=== PATIENT | male | born 1950 | race Caucasian/White ===

== ENCOUNTER → 2023-09-11 07:09 | Outpatient (REF) | payer OTHER, SELFPAY | LOC: DHCBC/DCA 07:09 | PROVIDERS: ATTENDING PHYSICIAN Internal Medicine Cardiovascular Disease; FAMILY PHYSICIAN Physician Assistant Medical | DX: I10 Essential (primary) hypertension (principal); R06.09 Other forms of dyspnea; I25.119 Atherosclerotic heart disease of native coronary artery with unspecified angina pectoris | CPT/HCPCS: 78452; 93017; A9500; J2785 ==

== ENCOUNTER → 2023-12-18 06:36 | Day surgery (SDC) | payer OTHER, SELFPAY | LOC: GI 06:36 | PROVIDERS: ATTENDING PHYSICIAN Internal Medicine; FAMILY PHYSICIAN Physician Assistant Medical | DX: Z12.11 Encounter for screening for malignant neoplasm of colon (principal); D12.2 Benign neoplasm of ascending colon; D12.3 Benign neoplasm of transverse colon; K63.5 Polyp of colon; K51.40 Inflammatory polyps of colon without complications; K51.50 Left sided colitis without complications; K51.30 Ulcerative (chronic) rectosigmoiditis without complications; K57.30 Diverticulosis of large intestine without perforation or abscess without bleeding; K64.9 Unspecified hemorrhoids | CPT/HCPCS: 45385; 45380; 88305 ==

== ENCOUNTER → 2024-03-09 14:16 | Outpatient (REF) | payer OTHER, SELFPAY | LOC: HWRAD 14:16 | PROVIDERS: ATTENDING PHYSICIAN Physician Assistant Medical | DX: M25.511 Pain in right shoulder (principal) | CPT/HCPCS: 73030 ==

== ENCOUNTER → 2024-05-02 09:46 | Outpatient (REF) | payer OTHER, SELFPAY | LOC: MRI 3T 09:46 | PROVIDERS: ATTENDING PHYSICIAN Specialist; FAMILY PHYSICIAN Physician Assistant Medical | DX: M25.511 Pain in right shoulder (principal) | CPT/HCPCS: 73221 ==

== ENCOUNTER 2024-07-14 15:22 | Inpatient (IN) | payer OTHER, SELFPAY ==
[2024-07-14 08:21] VITALS: BP 115/86
--- NOTE | 2024-07-14 08:21 | ED.GENMED ---
ED Provider Triage
<Xochitl Borrero PA-C - Last Filed: 07/14/24 08:26>
-
Patient seen by provider in Triage?: Seen in Triage
Attestation: A medical screening examination has been initiated by a qualified medical provider. Based on the assessment performed at this time, it has been determined that an emergent medical condition may exist and the patient has been informed
that further medical evaluation and possible additional diagnostic testing may be needed.
HPI: 73yoM here with diarrhea and abdominal pain x 1.5 weeks. Hx of ulcerative colitis on Stelara. Seen by GI, Dr. Servin, this morning. Sent to ED for uncontrolled UC flare and concern for C.diff. 'Needs hospitalization for imaging, stools, and IV
steroids.'
GENERAL: Alert , in no apparent distress
EYE: No visual abnormalities.
NECK: Trachea midline
ENT: No visible abnormalities.
LUNGS: No acute respiratory distress
NEUROLOGICAL: Alert and oriented
SKIN: Skin intact. No visible changes.
MUSCULOSKELETAL: Moving extremities normally
PSYCH: Normal and appropriate interaction.
This is a medical evaluation conducted in person to initiate diagnostic evaluation and provide initial therapeutics. Please see further documentation by the treating clinician.
Abdominal labs, ESR/CRP, stool studies, and CT abdomen ordered.
History of Present Illness
<Xochitl Borrero PA-C - Last Filed: 07/14/24 08:26>
General
Chief Complaint: Abdominal Pain
Time Seen by Provider: 07/14/24 10:23
<Ayaz Chandler Jr., PA-C - Last Filed: 07/14/24 14:42>
General
Source: patient
Exam Limitations: none
Nursing documentation reviewed up to this point in time: agreed with
History of Present Illness
History of Present Illness:
73-year-old male with past medical history of ulcerative colitis sent in after discussion with his GI doctor with concerns of persisting severe diarrhea abdominal pain over the past week and a half. Patient is on Stelara has been taking this as
prescribed. He was seen in the office by Dr. Castellanos this morning which is the GI doctor. The they did reach out to the ER and had direct discussion with us about recommendations for treatment. There is concern for C. difficile and recommended
multiple forms of testing. Otherwise additional record request for CT scan and eventual IV steroids.
Past History
<Xochitl Borrero PA-C - Last Filed: 07/14/24 08:26>
Past History
ED Past Medical History: HTN and Other (Osteoarthritis)
ED Past Surgical History: Appendectomy, Orthopedic and Other (hernia)
Social History
Tobacco: Non-smoker
Alcohol: Occasional (Rare)
Personal:
Living: with family
Employment: Employed
Family History
Family History: Other (Noncontributory)
Review of Systems
<Ayaz Chandler Jr., PA-C - Last Filed: 07/14/24 14:42>
Review of Systems
Allergies reviewed?: Yes
All Other Systems: ROS reviewed and negative except as documented in HPI and ROS
Phy Exam
<Ayaz Chandler Jr., PA-C - Last Filed: 07/14/24 14:42>
Physical Exam
Physical Exam:
GENERAL: Alert , in no apparent distress
EYE: pupils equal and reactive
NECK: Supple, no significant adenopathy.
ENT: o/p clr, mmm.
CARDIAC: Regular rate and rhythm .
LUNGS: Clear breath sounds bilaterally, no acute respiratory distress, no wheezes/rales/rhonchi
ABDOMEN: Soft, without focal tenderness, no r/g, no cvat
NEUROLOGICAL: Alert and oriented, no focal neuro deficits
SKIN: Warm and dry, skin intact.
MUSCULOSKELETAL: No edema, well perfused.
PSYCH: Normal and appropriate interaction.
Course
<Xochitl Borrero PA-C - Last Filed: 07/14/24 08:26>
Orders/Labs/Results
Orders:
Orders
07/14/24 Breakfast
Clear Liquid
07/14/24 08:25
CT Abd/pel (oral only)-DH Only Urgent
Reason For Exam: Abd pain, diarrhea, hx of UC
Iohexol [Omnipaque] See Protocol PO NOW STA
07/14/24 08:31
CRP [C-Reactive Protein] Urgent
Complete Blood Count/With Diff Urgent
Comprehensive Metabolic Panel Urgent
ESR [Erythrocyte Sed Rate] Urgent
Ferritin Urgent
Iron Urgent
Lipase Urgent
07/14/24 11:34
HYDROmorphone [Dilaudid] 1 mg IV NOW STA
07/14/24 11:39
Ondansetron Injectable [Zofran] 4 mg .ROUTE .[facility]
07/14/24 11:52
Add On- LAB Routine
Tests Added?: ferritin, iron
07/14/24 12:28
Ondansetron Injectable [Zofran] 4 mg IV NOW STA
07/14/24 12:34
Calprotectin, Fecal [S] Urgent
Date Specimen was Collected: 07/14/24
Time Specimen was Collected: 12:19
CDIFF [C difficile Antigen & Toxins] Urgent
ISMAEL Source: Feces/Stool
Specimen Description:
Date Specimen was Collected: 07/14/24
Time Specimen was Collected: 12:19
Norovirus by PCR Urgent
ISMAEL Source: Feces/Stool
Specimen Description:
Date Specimen was Collected: 07/14/24
Time Specimen was Collected: 12:19
Stool Culture Urgent
ISMAEL Source: Feces/Stool
Specimen Description:
Date Specimen was Collected: 07/14/24
Time Specimen was Collected: 12:19
07/14/24 14:15
0.9% Sodium Chloride 1000 ml [Nss] 1,000 ml IV 100 mls/hr
07/14/24 15:00
MethylPREDNISolone PF [Solu-Medrol Pf] 20 mg IV Q8
07/15/24 06:00
Basic Metabolic Panel IN AM
Complete Blood Count/With Diff IN AM
Abnormal Lab Results
07/14/24
08:31
WBC 13.7 H 10^3/uL
(4.8-10.8)
RBC 4.13 L 10^6/uL
(4.70-6.10)
Hgb 12.9 L g/dL
(13.0-18.0)
Hct 37.3 L %
(39.0-52.0)
MCH 31.2 H pg
(27.0-31.0)
Plt Count 483 H 10^3/uL
(130-400)
Abs Immat Gran (auto) 0.1 H 10^3/uL
(0-0.05)
Absolute Neuts (auto) 8.8 H 10^3/uL
(1.4-6.5)
Absolute Monos (auto) 1.5 H 10^3/uL
(0.1-0.6)
Immature Gran % 0.8 H %
(0-0.5)
Monocytes % 11.3 H %
(1.7-9.3)
ESR 25 H mm/hour
(0-20)
Carbon Dioxide 21 L mmol/L
(22-30)
BUN 28 H mg/dl
(9-20)
Creatinine 2.0 H mg/dL
(0.7-1.3)
Glucose 130 H mg/dl
(70-99)
Calcium 10.3 H mg/dl
(8.4-10.2)
AST 15 L U/L
(17-59)
C-Reactive Protein 28.00 H mg/L
(0.0-10.00)
07/14/24 08:31
07/14/24 08:31
Vital Signs
Initial and Last Documented VS:
Initial Vital Signs
Temp Pulse Resp BP Pulse Ox
98.1 F 111 16 115/86 98
07/14/24 08:21 07/14/24 08:21 07/14/24 08:21 07/14/24 08:21 07/14/24 08:21
Last Documented Vital Signs
Temp Pulse Resp BP Pulse Ox
98.4 F 84 16 133/89 99
07/14/24 11:22 07/14/24 11:22 07/14/24 08:21 07/14/24 11:22 07/14/24 11:22
<Ayaz Chandler Jr., PAKushC - Last Filed: 07/14/24 14:42>
Orders/Labs/Results
Orders:
Orders
07/14/24 Breakfast
Clear Liquid
07/14/24 08:25
CT Abd/pel (oral only)-[facility] Only Urgent
Reason For Exam: Abd pain, diarrhea, hx of UC
Iohexol [Omnipaque] See Protocol PO NOW STA
07/14/24 08:31
CRP [C-Reactive Protein] Urgent
Complete Blood Count/With Diff Urgent
Comprehensive Metabolic Panel Urgent
ESR [Erythrocyte Sed Rate] Urgent
Ferritin Urgent
Iron Urgent
Lipase Urgent
07/14/24 11:34
HYDROmorphone [Dilaudid] 1 mg IV NOW STA
07/14/24 11:39
Ondansetron Injectable [Zofran] 4 mg .ROUTE .[facility]
07/14/24 11:52
Add On- LAB Routine
Tests Added?: ferritin, iron
07/14/24 12:28
Ondansetron Injectable [Zofran] 4 mg IV NOW STA
07/14/24 12:34
Calprotectin, Fecal [S] Urgent
Date Specimen was Collected: 07/14/24
Time Specimen was Collected: 12:19
CDIFF [C difficile Antigen & Toxins] Urgent
ISMAEL Source: Feces/Stool
Specimen Description:
Date Specimen was Collected: 07/14/24
Time Specimen was Collected: 12:19
Norovirus by PCR Urgent
ISMAEL Source: Feces/Stool
Specimen Description:
Date Specimen was Collected: 07/14/24
Time Specimen was Collected: 12:19
Stool Culture Urgent
ISMAEL Source: Feces/Stool
Specimen Description:
Date Specimen was Collected: 07/14/24
Time Specimen was Collected: 12:19
07/14/24 14:15
0.9% Sodium Chloride 1000 ml [Nss] 1,000 ml IV 100 mls/hr
07/14/24 15:00
MethylPREDNISolone PF [Solu-Medrol Pf] 20 mg IV Q8
07/15/24 06:00
Basic Metabolic Panel IN AM
Complete Blood Count/With Diff IN AM
Abnormal Lab Results
07/14/24
08:31
WBC 13.7 H 10^3/uL
(4.8-10.8)
RBC 4.13 L 10^6/uL
(4.70-6.10)
Hgb 12.9 L g/dL
(13.0-18.0)
Hct 37.3 L %
(39.0-52.0)
MCH 31.2 H pg
(27.0-31.0)
Plt Count 483 H 10^3/uL
(130-400)
Abs Immat Gran (auto) 0.1 H 10^3/uL
(0-0.05)
Absolute Neuts (auto) 8.8 H 10^3/uL
(1.4-6.5)
Absolute Monos (auto) 1.5 H 10^3/uL
(0.1-0.6)
Immature Gran % 0.8 H %
(0-0.5)
Monocytes % 11.3 H %
(1.7-9.3)
ESR 25 H mm/hour
(0-20)
Carbon Dioxide 21 L mmol/L
(22-30)
BUN 28 H mg/dl
(9-20)
Creatinine 2.0 H mg/dL
(0.7-1.3)
Glucose 130 H mg/dl
(70-99)
Calcium 10.3 H mg/dl
(8.4-10.2)
AST 15 L U/L
(17-59)
C-Reactive Protein 28.00 H mg/L
(0.0-10.00)
07/14/24 08:31
07/14/24 08:31
Vital Signs
Initial and Last Documented VS:
Initial Vital Signs
Temp Pulse Resp BP Pulse Ox
98.1 F 111 16 115/86 98
07/14/24 08:21 07/14/24 08:21 07/14/24 08:21 07/14/24 08:21 07/14/24 08:21
Last Documented Vital Signs
Temp Pulse Resp BP Pulse Ox
98.4 F 84 16 133/89 99
07/14/24 11:22 07/14/24 11:22 07/14/24 08:21 07/14/24 11:22 07/14/24 11:22
<Ayaz Chandler Jr., PA-C - Last Filed: 07/14/24 14:42>
MDM/Problems Addressed
MDM/Problems Addressed:
73-year-old male past medical history of ulcerative colitis presenting with severe diarrhea and abdominal pain over the past week and a half. Sent in for further assessment by his gastroenterology group. Plan for testing CT scan and IV steroids.
CT without acute abnormalities other than colitis but no signs of complication. Patient was given fluids IV pain medication. C. difficile negative.
<Ayaz Chandler Jr., PA-C - Last Filed: 07/14/24 14:42>
*Critical Care Note
Total Time (30-74mins, 75-104mins- exclusive of procedures): Not Applicable
ED Attending Note
<Xochitl Borrero PA-C - Last Filed: 07/14/24 08:26>
-
Portions of this chart may have been created with voice recognition software.� Occasional wrong word or��sound alike� substitutions may have occurred due to the inherent limitations of voice recognition software.
Discharge Plan
Departure
Patient Disposition: Admit
Date of Disposition: 07/14/24
Time of Disposition: 14:41
Admit to: Med/Surg
Admit to doctor: Gianni
Presentation/result/management discussed w/ accepting MD/DO: Hospitalist
Patient with high blood pressure during this ER visit?: No
Condition: Good
Covid-19: Not Applicable
Discharge Problem:
Ulcerative colitis, acute
Prescriptions:
No Action
amlodipine 5 MG tablet
5 mg PO DAILY
omeprazole 20 MG capsule,delayed release(DR/EC)
1 cap PO DAILY
tamsulosin [Flomax] 0.4 MG capsule
1 tab PO DAILY AT 0700
ascorbic acid (vitamin C) [Vitamin C] 100 MG tablet
1 tab PO DAILY
docusate sodium [Stool Softener] 100 MG capsule
100 mg PO DAILYPRN PRN (Reason: constipation)
losartan-hydrochlorothiazide [Hyzaar] 1 EACH tablet
1 tab PO DAILY
ferrous sulfate [High Potency Iron] 27 MG tablet
27 mg PO Q3D
cholecalciferol (vitamin D3) 2,000 UNITS tablet
2,000 units PO DAILY
Vitamin D3/Vitamin K2 (Mk4)
Referrals:
Pratima Martinez PA-C [Family Provider] -
Interventions
Interventions:
*Risk Screen - Suicide Last Done: 07/14/24 08:21
*General Assessment Last Done: 07/14/24 08:21
*Neglect/Abuse Screening Last Done: 07/14/24 08:24
*ED COVID-19 Vaccine History Last Done: 07/14/24 11:19
EM-Qttupq-Yvrlwrlpcd Assessment Last Done: 07/14/24 11:21
Discharge Date and Time
Print Language: [place]OREAN
[2024-07-14] MEDS: OMNIPAQUE 50 ML PO (08:43)
[2024-07-14 08:47] LABS: % Basophils 0.6 % (0-2); % Eosinophils 1.7 % (0-6); % Immature Granulocytes 0.8 % (0-0.5); % Lymphocytes 21.7 % (20.5-51.1); % Monocytes 11.3 % (1.7-9.3); % Neutrophils 63.9 % (42.2-75.2); Absolute Basophils 0.1 10^3/uL (0-0.2); Absolute Eosinophils 0.2 10^3/uL (0-0.7); Absolute Immature Granulocytes 0.1 10^3/uL (0-0.05); Absolute Monocytes 1.5 10^3/uL (0.1-0.6); Absolute Neutrophils 8.8 10^3/uL (1.4-6.5); Hematocrit 37.3 % (39.0-52.0); Hemoglobin 12.9 g/dL (13.0-18.0); Mean Corp Hgb Conc. 34.6 g/dL (33.0-37.0); Mean Corpuscular Hgb 31.2 pg (27.0-31.0); Mean Corpuscular Volume 90.3 fL (80.0-94.0); Mean Platelet Volume 9.1 fL (7.4-10.4); Nucleated Red Blood Cells % 0 % (-); Platelet Count 483 10^3/uL (130-400); Red Blood Cell Count 4.13 10^6/uL (4.70-6.10); Red Cell Dist. Width 12.3 % (11.5-14.5); White Blood Cell Count 13.7 10^3/uL (4.8-10.8)
[2024-07-14 09:00] LABS: ALT (SGPT) 13 U/L (0-50); AST (SGOT) 15 U/L (17-59); Albumin 3.9 g/dl (3.5-5.0); Alkaline Phosphatase 88 U/L (38-126); Blood Urea Nitrogen 28 mg/dl (9-20); Calcium 10.3 mg/dl (8.4-10.2); Carbon Dioxide 21 mmol/L (22-30); Chloride 105 mmol/L (98-107); Glucose 130 mg/dl (70-99); Lipase 56 U/L (23-300); Potassium 3.8 mmol/L (3.5-5.1); Sodium 141 mmol/L (135-145); Total Bilirubin 0.5 mg/dl (0.2-1.3); Total Protein 6.4 g/dl (6.3-8.2); eGFR 34.59
[2024-07-14 09:04] LABS: Erythrocyte Sed Rate 25 mm/hour (0-20)
[2024-07-14 11:19] VITALS: BMI 27.9
[2024-07-14 11:22] VITALS: BP 133/89
[2024-07-14] MEDS: DILAUDID 1 MG IV ×3 (12:27→23:04)
[2024-07-14] MEDS: ZOFRAN 4 MG IV (12:28)
[2024-07-14 12:51] LABS: Iron 52 ug/dl (49-181)
--- NOTE | 2024-07-14 13:59 | CON.GI ---
Consultation
-
Date/Time Consultation Performed: 07/14/24
Performing Provider: Moisés Collins MD
Reason for Consultation: colitis
Medical History
Chief Complaint / HPI
Chief Complaint: diarrhea
History of Present Illness:
The patient is a 73-year-old male with past medical history as noted who presents with increasing colitis symptoms. He has a history of ulcerative colitis, proctosigmoid, initially on Entyvio, switched for activity to Stelara over the summer,
recently increased in May to every 4 weeks due to lack of response. He admits to multiple bowel movements with tenesmus, sometimes 20-30, with blood and mucus. Stool studies in May were negative including ova and parasites, culture,
Giardia and C. difficile. Sed rate was normal as well as CRP, though fecal calprotectin was elevated mildly at 570. He denies any rashes, joint swelling. He has [place] at home and denies any other travel or sick contacts. He had been
doing relatively well symptom [place] until his shoulder surgery , Though C. difficile has been repeatedly negative.
Past Medical History
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
hypertension)
Past Surgical History: Other (Recent shoulder surgery, hernia repair, right hip, appendectomy, right thumb)
Social History
Tobacco: Former Smoker
Alcohol: None
Family History
Family History: Reviewed & Not Pertinent
Allergies / Home Medications
Allergy/AdvReac Type Severity Reaction Status Date / Time
Penicillins Allergy Unknown Unknown Verified 07/14/24 08:21
�Medication �Instructions �Recorded
amlodipine 5 mg tablet 5 mg PO DAILY 11/20/15
omeprazole 20 mg capsule,delayed 1 cap PO DAILY 08/09/20
release
Vitamin D3/Vitamin K2 (Mk4) 02/28/21
ascorbic acid (vitamin C) 100 mg 1 tab PO DAILY 02/28/21
tablet (Vitamin C)
cholecalciferol (vitamin D3) 50 2,000 units PO DAILY 02/28/21
mcg (2,000 unit) tablet
docusate sodium 100 mg capsule 100 mg PO DAILYPRN PRN constipation 02/28/21
(Stool Softener)
ferrous sulfate 27 mg iron tablet 27 mg PO Q3D 02/28/21
(High Potency Iron)
losartan 100 1 tab PO DAILY 02/28/21
mg-hydrochlorothiazide 12.5 mg
tablet (Hyzaar)
tamsulosin 0.4 mg capsule (Flomax) 1 tab PO DAILY AT 0700 02/28/21
Review of Systems
-
All other systems: A 12 pt ROS was Negative except as stated above in HPI
Vital Signs
Temp Pulse Resp BP Pulse Ox
98.4 F 84 16 133/89 99
07/14/24 11:22 07/14/24 11:22 07/14/24 08:21 07/14/24 11:22 07/14/24 11:22
Physical Exam
Exam
General: NAD
HEENT: MMM, anicteric, no lymphadenopathy
Heart: Regular, no murmurs
Lungs: CTA bilaterally
Abdomen: normal bowel sounds, soft, mild diffuse tenderness, no rebound or guarding, no masses, bruits or ascites
Extremeties: no edema
Skin: no rashes
Results
WBC 13.7 10^3/uL (4.8-10.8) H 07/14/24 08:31
Hgb 12.9 g/dL (13.0-18.0) L 07/14/24 08:31
Hct 37.3 % (39.0-52.0) L 07/14/24 08:31
MCV 90.3 fL (80.0-94.0) 07/14/24 08:31
Plt Count 483 10^3/uL (130-400) H 07/14/24 08:31
Absolute Neuts (auto) 8.8 10^3/uL (1.4-6.5) H 07/14/24 08:31
Sodium 141 mmol/L (135-145) 07/14/24 08:31
Potassium 3.8 mmol/L (3.5-5.1) 07/14/24 08:
Chloride 105 mmol/L (98-107) 07/14/24 08:31
Carbon Dioxide 21 mmol/L (22-30) L 07/14/24 08:
BUN 28 mg/dl (9-20) H 07/14/24 08:
Creatinine 2.0 mg/dL (0.7-1.3) H 07/14/24 08:
Calcium 10.3 mg/dl (8.4-10.2) H 07/14/24 08:
Total Bilirubin 0.5 mg/dl (0.2-1.3) 07/14/24 08:
AST 15 U/L (17-59) L 07/14/24 08:31
ALT 13 U/L (0-50) 07/14/24 08:31
Alkaline Phosphatase 88 U/L (38-126) 07/14/24 08:31
Lipase 56 U/L (23-300) 07/14/24 08:31
Diagnostic Image Results:
CT:
IMPRESSION: CT findings compatible with diffuse colitis. This is most likely exacerbation of ulcerative colitis, given the clinical history.
There is no significant dilation of the colon.
There is no evidence for bowel obstruction and no evidence of free intraperitoneal air.
Status post cholecystectomy with no evidence for biliary ductal dilation.
Bony degenerative changes as described.
Prior GI Procedures:
EGD:
Colonoscopy:
December 2023, showed San 2 from rectum to sigmoid, biopsy showed moderate to severe active and chronic inflammation without dysplasia, 2 small adenomas.
Assessment / Plan
-
1. Colitis: With history of proctosigmoiditis, failed Entyvio and every 8weeks Stelara, currently on every 4 weeks, now with worsening symptoms, with negative stool studies in May, also with repeat negative C. difficile now, likely related to
worsening ulcerative colitis. At this point with negative C. difficile and previously negative stool studies will start IV steroids, will await final stool studies. Will continue supportive care including IV fluids. Pending clinical course
possible flexible sigmoidoscopy to rule out CMV which seems less likely. If all the above is negative and not responding then may need to consider infliximab as an inpatient.
-
-
Thank you for consultation and allowing me to participate in the patient's care. Please call the electroneurodiagnostic technician GI physician during the after hours with any questions or concerns.
--- NOTE | 2024-07-14 14:44 | HPS.HSE ---
Addendum entered and electronically signed by Mikael Herbert MD 07/14/24 16:06:
I personally performed a history and physical exam of the patient and discussed management with the resident. I reviewed the resident's note and agree with the documented findings and plan of care HPI/CC except for changes in my documentation
73-year-old male presented with diarrhea and abdominal discomfort. He has a history of ulcerative colitis was on Entyvio then switched to Stelara now. He has been having several bile movements and also pain. He also noted some blood and mucus.
CT of the abdomen pelvis-07/14/2024-diffuse colitis. No dilatation of the colon. No evidence of bile obstruction or free intraperitoneal air. Status post cholecystectomy
CVS: S1-S2 normal
Chest: CTA B/L
Abdomen: Soft,abd discomfort with palpation,Bowel sounds present
Extremities: No edema
# Ulcerative colitis flare
Follows with Dr. Servin now
Was on Entyvio as outpatient now switched to Stelara and the dose was recently increased
Colonoscopy within the past year was unremarkable per patient. I do not have details.
CRP 28
Pain control
Check stool cultures
Admitted start IV steroids, IV fluids
Stool culture was negative in May
GI planning to start infliximab as outpatient
Stool calprotectin pending
GI consultation
# Acute kidney injury-likely secondary to prerenal losses from diarrhea. Follow with IV fluids. Check urinalysis and urine sodium. Hold losartan hydrochlorothiazide. Check Bladder scan
# History of small bowel obstruction 2018
# COPD-continue Trelegy Ellipta
# History of lung nodules
# Mild thrombocytosis-follow
# Hypertension-Hold losartan/hydrochlorothiazide
# Prostate disease-continue Flomax.
# Diverticulosis/hemorrhoids
# Ex-smoker
# DVT prophylaxis-Lovenox and SCDs
# CODE STATUS-Full CODE
D/W GI
D/W at bed side
Part of this note was created using voice recognition system. Occasional wrong word or��sound alike� substitutions may have inadvertently occurred due to the inherent limitations of voice recognition software. If noted kindly bring it to my
attention for correction.
Original Note:
Family Physician
-
Family Physician: Pratima Martinez PA-C
Chief Complaint
-
Diarrhea severe diarrhea
History of Present Illness
Patient is a 73-year-old male with past medical history of BPH,COPD as a previous smoker, hypertension, osteoarthritis, stage IV kidney disease, iron deficiency anemia, and ulcerative colitis presenting to [facility] after 1-1/2 weeks of
severe diarrhea. He states some days he was in the bathroom 50 times. He states that he has bloody bowel movements, with alternating sharp and cramping abdominal pain diffusely. He has recently lost 20 pounds in the last 6 months secondary to
restrictive eating because he is trying not to use the restroom. Stool studies in May were negative including ova and parasites, culture, Giardia and C. difficile. His dose of Stelara was recently increased in May. He was seen by GI in
the ED who started IV fluids and steroids.
Today he reports no headaches, chest pain, shortness of breath or numbness and tingling in the extremities. He does report nausea, vomiting this a.m. and abdominal discomfort.
Medical History
Past Medical History
Past Medical History: Reports COPD, HTN, Renal Failure and Other (Ulcerative colitis)
Additional Past Medical History:
BPH
Past Surgical History: Reports Appendectomy, Orthopedic and Other (Hernia)
Social History
Tobacco: Former Smoker
Alcohol: None
Drug: None
Personal:
Living: With Family
Employment: Employed
Family History
Family History: CAD
Allergies / Home Medications
Allergies reflects when Allergies were last updated in [employer].
Home Medications with original date entered in [facility]
Allergy/Medication List:
Allergies
Allergy/AdvReac Type Severity Reaction Status Date / Time
Penicillins Allergy Unknown Unknown Verified 12/03/24 08:21
Home Medications
amlodipine 5 mg tablet 5 mg PO DAILY 11/20/15
omeprazole 20 mg capsule,delayed release 1 cap PO DAILY 08/09/20
Vitamin D3/Vitamin K2 (Mk4) 02/28/21
ascorbic acid (vitamin C) 100 mg tablet (Vitamin C) 1 tab PO DAILY 02/28/21
cholecalciferol (vitamin D3) 50 mcg (2,000 unit) tablet 2,000 units PO DAILY 02/28/21
docusate sodium 100 mg capsule (Stool Softener) 100 mg PO DAILYPRN PRN constipation 02/28/21
ferrous sulfate 27 mg iron tablet (High Potency Iron) 27 mg PO Q3D 02/28/21
losartan 100 mg-hydrochlorothiazide 12.5 mg tablet (Hyzaar) 1 tab PO DAILY 02/28/21
tamsulosin 0.4 mg capsule (Flomax) 1 tab PO DAILY AT 0700 02/28/21
Review of Systems
-
History Source: Patient
A 12 point ROS was completed and negative except as noted: Yes
Constitutional: Reports Weight Loss
EENT: Reports No Symptoms
Respiratory: Reports No Symptoms
Cardiac: Reports No Symptoms
Abdomen/GI: Reports Abdominal Pain, Nausea, Vomiting, Diarrhea and Bloody Stools
: Reports No Symptoms
Musculoskeletal: Reports No Symptoms
Neurological: Reports No Symptoms
Psych: Reports No Symptoms
Physical Exam
Vital Signs
Vital Signs
Temp Pulse Resp BP Pulse Ox
98.4 F 84 16 133/89 99
07/14/24 11:22 07/14/24 11:22 07/14/24 08:21 07/14/24 11:22 07/14/24 11:22
Physical Exam
General: Well Developed, Well Nourished, No Apparent Distress, Conversant and Poor Appetite
HEENT: NormoCephalic and Anicteric
Respiratory: Clear
Cardiac: S1/S2 and Regular Rhythm
GI: Soft, Non Distended, Normal Bowel Sounds and Tender
Musculoskeletal: No Clubbing, No Cyanosis and No Edema
Skin: Warm and Dry
Neuro: AO x 3
Psych: Calm
Laboratory Results
-
07/14/24 08:31
07/14/24 08:
Laboratory Results
Total Bilirubin 0.5 mg/dl (0.2-1.3) 07/14/24 08:
AST 15 U/L (17-59) L 07/14/24:
ALT 13 U/L (0-50) 07/14/24:
Alkaline Phosphatase 88 U/L (38-126) 07/14/24:
Lipase 56 U/L (23-300) 07/14/24 08:
Data Reviewed
-
CT Scan: Report Reviewed by me
Lab Data: Labs Reviewed by me and Discussed with Physician
Old Records: Reviewed
Impression/Plan
-
IMPRESSION: 73-year-old male with past medical history of ulcerative colitis presenting with severe diarrhea over the last week and a half.
PLAN:
#Colitis with history of proctosigmoiditis
Currently managed on Stelara every 4 weeks
Pending stool studies
Continue IVF, IV steroids and pain management
Consider infliximab as inpatient if no response per GI recommendations
GI following, input appreciated
#COPD
Continue fluticasone
#Hypertension
Continue losartan
#GERD
Continue omeprazole
DVT: Pneumatic compression sleeves
Diet: Clear liquids
Full code
[2024-07-14] MEDS: SOLU-MEDROL PF 20 MG IV ×2 (16:22→23:01)
[2024-07-14] MEDS: NSS 1000 IV (16:22)
[2024-07-14 16:25] VITALS: BP 120/81
--- NOTE | 2024-07-14 19:55 | PTCARENOTE ---
Pt received from ED to rm [id number]. pt oriented to room and call baptiste.
[2024-07-14 20:01] VITALS: BP 145/81
[2024-07-14] MEDS: FLOMAX 0.4 MG PO (20:07)
[2024-07-14] MEDS: SYMBICORT 80/4.5 MCG INHALER 2 PUFF INH (20:08)
[2024-07-14 23:23] LABS: Urine Albumin Trace (Neg - Trace); Urine Bilirubin Negative (Negative); Urine Character Clear (Clear); Urine Color Yellow; Urine Glucose Negative (Negative); Urine Ketone Negative (Negative); Urine Leukocyte Trace (Negative); Urine Nitrite Negative (Negative); Urine Occult Blood Trace (Negative); Urine Specific Gravity 1.025 (<1.030); Urine Urobilinogen Negative (Neg - 1+)
[2024-07-14 23:44] VITALS: BP 131/76
[2024-07-14 23:48] LABS: Urine Calcium Oxalate Crystals Seen; Urine Mucus Moderate
[2024-07-14 23:49] LABS: Urine Bacteria Moderate (Negative)
[2024-07-14 23:51] LABS: Urine Sodium 75 mmol/L (30-90)
[2024-07-15] MEDS: NSS 1000 IV ×3 (00:30→20:57)
[2024-07-15 06:51] VITALS: BMI 27.0
[2024-07-15 07:00] VITALS: BP 129/75
--- NOTE | 2024-07-15 07:46 | W.PN.HOSP.TC ---
Addendum entered and electronically signed by Mikael Herbert MD 07/15/24 17:55:
I saw and evaluated the patient. I reviewed the resident�s note and agree with findings and plan as documented in the resident�s note.
Patient feels that his diarrhea has gotten Much better no blood in the stools
Abdomen less tender today
Continue IV steroids and IV fluids
Original Note:
Today's Communication/Plan
-
Continue IV fluids and steroids. Progress diet. Continue to monitor for frequency and blood in stool.
Assessment / Plan
Assessment / Plan
Patient is a 73-year-old male with past medical history of BPH,COPD as a previous smoker, hypertension, osteoarthritis, stage IV kidney disease, iron deficiency anemia, and ulcerative colitis presenting to [facility] after 1-1/2 weeks of
severe diarrhea.
#Colitis with history of proctosigmoiditis
Currently managed on Stelara every 4 weeks
Pending stool studies. C. difficile and norovirus negative, Shigella Campylobacter and Salmonella pending
Continue IVF, IV steroids and pain management
Consider infliximab as inpatient if no response per GI recommendations
Diet progressed to full liquid today
GI following, input appreciated
#COPD
Continue fluticasone
#Hypertension
Hold losartan
#GERD
Continue omeprazole
DVT: Pneumatic compression sleeves
Diet: Full liquid
Full code
Anticipated Discharge: 24 - 48 hours
Subjective/Interval History
-
Date of Service: July 15, 2024
Patient is a 73-year-old male with past medical history of BPH,COPD as a previous smoker, hypertension, osteoarthritis, stage IV kidney disease, iron deficiency anemia, and ulcerative colitis presenting to [facility] after 1-1/2 weeks of
severe diarrhea. Patient reports that diarrhea has slowed overnight, no longer bloody. He has had no repeat episodes of nausea or vomiting. He still has mild tenderness in the abdomen.
Objective Data
-
Labs:
Laboratory Results
07/15/24
06:00
WBC Pending
Hgb Pending
Hct Pending
Plt Count Pending
Sodium Pending
Potassium Pending
Chloride Pending
Carbon Dioxide Pending
BUN Pending
Creatinine Pending
Glucose Pending
Calcium Pending
Vital Signs:
Vital Signs
Temp Pulse Resp BP Pulse Ox
97.9 F 72 18 131/76 95
07/14/24 23:44 07/14/24 23:44 07/14/24 23:44 07/14/24 23:44 07/14/24 23:44
I&O
07/14/24 07/15/24 07/16/24
06:59 06:59 06:59
Intake Total 1200 / 1200
Balance 1200 / 1200
Review of Systems
-
History Source: Patient
Constitutional: Reports No Symptoms
EENT: Reports No Symptoms Reported
Respiratory: Reports No Symptoms
Cardiac: Reports No Symptoms
Abdomen/GI: Reports Abdominal Pain and Diarrhea
Genitourinary: Reports No Symptoms
Skin: Reports No Symptoms
Physical Exam
-
General: Well Developed, Well Nourished, No Apparent Distress, Comfortable and Conversant
HEENT: Normocephalic and Atraumatic
Respiratory: Clear to Auscultation
Cardiac: Regular Rhythm and S1/S2
GI: Soft, Nontender and Nondistended
Musculoskeletal: No Clubbing, No Cyanosis and No Edema
Skin: Warm and Dry
Neuro: AO x 3
Psych: Calm
Data Reviewed
-
CT Scan: Report Reviewed by me
Labs: Labs Reviewed by me and Discussed with Physician
Old Records: Reviewed
[2024-07-15] MEDS: SOLU-MEDROL PF 20 MG IV ×3 (08:00→23:17)
[2024-07-15] MEDS: PROTONIX 40 MG PO (08:00)
[2024-07-15 08:22] LABS: % Basophils 0.2 % (0-2); % Immature Granulocytes 0.9 % (0-0.5); % Lymphocytes 20.5 % (20.5-51.1); % Monocytes 6.3 % (1.7-9.3); % Neutrophils 72.1 % (42.2-75.2); Absolute Immature Granulocytes 0.1 10^3/uL (0-0.05); Absolute Lymphocytes 2.4 10^3/uL (1.2-3.4); Absolute Monocytes 0.8 10^3/uL (0.1-0.6); Absolute Neutrophils 8.5 10^3/uL (1.4-6.5); Hematocrit 36.5 % (39.0-52.0); Hemoglobin 11.7 g/dL (13.0-18.0); Mean Corp Hgb Conc. 32.1 g/dL (33.0-37.0); Mean Corpuscular Hgb 30.5 pg (27.0-31.0); Mean Corpuscular Volume 95.1 fL (80.0-94.0); Nucleated Red Blood Cells % 0 % (-); Platelet Count 426 10^3/uL (130-400); Red Blood Cell Count 3.84 10^6/uL (4.70-6.10); Red Cell Dist. Width 12.1 % (11.5-14.5); White Blood Cell Count 11.8 10^3/uL (4.8-10.8)
[2024-07-15] MEDS: SPIRIVA RESPIMAT 2.5 MCG 2 PUFF INH (08:40)
[2024-07-15] MEDS: SYMBICORT 80/4.5 MCG INHALER 2 PUFF INH ×2 (08:40→20:10)
[2024-07-15 08:45] LABS: Blood Urea Nitrogen 26 mg/dl (9-20); Calcium 9.7 mg/dl (8.4-10.2); Carbon Dioxide 22 mmol/L (22-30); Chloride 105 mmol/L (98-107); Estimated Creatinine Clearance 39 ml/min; Glucose 129 mg/dl (70-99); Potassium 4.9 mmol/L (3.5-5.1); Sodium 140 mmol/L (135-145); eGFR 42.04
--- NOTE | 2024-07-15 08:46 | W.PN.GI.CBS2 ---
Today's Communication / Plan
-
Please see assessment and plan for details.
Assessment / Plan
-
1. Colitis: With history of proctosigmoiditis, failed Entyvio and every 8weeks Stelara, currently on every 4 weeks, now with worsening symptoms, with negative stool studies in May, also with repeat negative C. difficile now, likely related to
worsening ulcerative colitis. At this point with negative C. difficile and previously negative stool studies will start IV steroids, will await final stool studies. Will continue supportive care including IV fluids. Will advance to full liquids
for today continue to trend labs and IV steroids. Pending clinical course possible flexible sigmoidoscopy to rule out CMV which seems less likely. If all the above is negative and not responding then may need to consider infliximab as an inpatient.
Subjective
Subjective
Date of Service: July 15, 2024
Patient feeling okay, still with diarrhea overnight, though no blood. Some tenderness though not worse, no fevers or chills. Stool studies negative so far.
Objective
Data Reviewed
Laboratory Data:
Laboratory Results
07/15/24 07:50
07/15/24 07:50
Laboratory Results
Total Bilirubin 0.5 mg/dl (0.2-1.3) 07/14/24 08:31
AST 15 U/L (17-59) L 07/14/24 08:31
ALT 13 U/L (0-50) 07/14/24 08:31
Alkaline Phosphatase 88 U/L (38-126) 07/14/24 08:31
Lipase 56 U/L (23-300) 07/14/24 08:31
Vital Signs and I&O:
Vital Signs
Temp Pulse Resp BP Pulse Ox
97.9 F 73 17 131/76 95
07/14/24 23:44 07/15/24 08:41 07/15/24 08:41 07/14/24 23:44 07/15/24 08:41
I&O
07/14/24 07/15/24 07/16/24
06:59 06:59 06:59
Intake Total 1200 / 1200
Balance 1200 / 1200
Physical Exam
Physical Exam
General: NAD
Abdomen: normal bowel sounds, soft, mild diffuse tenderness, no masses or bruits, no ascites
[2024-07-15 15:00] VITALS: BP 139/74
--- NOTE | 2024-07-15 15:33 | CM ---
sales advisory manager reviewed patient's chart and met with patient and patient lives with spouse and daughter in a 1 story home, patient is independent with adl's and ambulation, no dme, patient drives.
PCP: Pratima Martinez
Pharmacy: [facility]
Plan Home no needs when stable.
[2024-07-15] MEDS: FLOMAX 0.4 MG PO (20:58)
[2024-07-15] MEDS: DILAUDID 1 MG IV (21:36)
[2024-07-15 23:40] VITALS: BP 119/72
[2024-07-16] MEDS: NSS 1000 IV (07:06)
--- NOTE | 2024-07-16 07:24 | W.PN.GI.CBS2 ---
Today's Communication / Plan
-
Please see assessment and plan for details.
Assessment / Plan
-
1. Colitis: With history of proctosigmoiditis, failed Entyvio and every 8weeks Stelara, currently on every 4 weeks, now with worsening symptoms, with negative stool studies in May, also with repeat negative C. difficile now, likely related to
worsening ulcerative colitis. He is currently improving on day 2 of IV Solu-Medrol. Will continue supportive care, trend labs and will advance to low residue diet. If continues to improve possible DC in the next 24 to 48 hours.
Subjective
Subjective
Date of Service: July 16, 2024
Patient feeling better overall, less frequent stools, starting to form some, no blood. Tenderness is improving, tolerated liquids without difficulty.
Objective
Data Reviewed
Laboratory Data:
Laboratory Results
Total Bilirubin 0.5 mg/dl (0.2-1.3) 07/14/24 08:31
AST 15 U/L (17-59) L 07/14/24 08:31
ALT 13 U/L (0-50) 07/14/24 08:31
Alkaline Phosphatase 88 U/L (38-126) 07/14/24 08:31
Lipase 56 U/L (23-300) 07/14/24 08:31
Vital Signs and I&O:
Vital Signs
Temp Pulse Resp BP Pulse Ox
97.6 F 74 12 119/72 96
07/15/24 23:40 07/15/24 23:40 07/15/24 23:40 07/15/24 23:40 07/15/24 23:40
I&O
07/15/24 07/16/24 07/17/24
06:59 06:59 06:59
Intake Total 1200 / 1200 480 / 480
Balance 1200 / 1200 480 / 480
Physical Exam
Physical Exam
General: NAD
Abdomen: normal bowel sounds, soft, mild diffuse tenderness though improved, no masses or bruits, no ascites
[2024-07-16] MEDS: SYMBICORT 80/4.5 MCG INHALER 2 PUFF INH ×2 (07:42→20:26)
[2024-07-16] MEDS: SPIRIVA RESPIMAT 2.5 MCG 2 PUFF INH (07:43)
--- NOTE | 2024-07-16 07:45 | W.PN.HOSP.TC ---
Addendum entered and electronically signed by Mikael Herbert MD 07/16/24 16:22:
I saw and evaluated the patient. I reviewed the resident�s note and agree with findings and plan as documented in the resident�s note.
Patient's pain is improving. No bloody diarrhea. Bowel movements are slowing down.
Continue steroids
Diet being advanced
Original Note:
Today's Communication/Plan
-
See how patient tolerates low residue diet
Assessment / Plan
Assessment / Plan
Patient is a 73-year-old male with past medical history of BPH,COPD as a previous smoker, hypertension, osteoarthritis, stage IV kidney disease, iron deficiency anemia, and ulcerative colitis presenting to [facility] after 1-1/2 weeks of
severe diarrhea.
#Colitis with history of proctosigmoiditis
Currently managed on Stelara every 4 weeks
Pending stool studies. C. difficile and norovirus negative, Shigella Campylobacter and Salmonella pending
Continue IVF, IV steroids and pain management
Consider infliximab as inpatient if no response per GI recommendations
Diet progressed to low residue
GI following, input appreciated
#COPD
Continue fluticasone
#Hypertension
Hold losartan
#GERD
Continue omeprazole
DVT: Pneumatic compression sleeves
Diet: Low residue
Full code
Anticipated Discharge: 24 - 48 hours
Subjective/Interval History
-
Date of Service: July 16, 2024
Patient reports no acute events overnight. Diet was progressed to low residue. States that diarrhea stopped around 10 PM last night and restarted around 4:30 AM today, still without blood in stool.
Objective Data
-
Labs:
Laboratory Results
07/16/24
07:14
WBC Pending
Hgb Pending
Hct Pending
Plt Count Pending
Sodium Pending
Potassium Pending
Chloride Pending
Carbon Dioxide Pending
BUN Pending
Creatinine Pending
Glucose Pending
Calcium Pending
Vital Signs:
Vital Signs
Temp Pulse Resp BP Pulse Ox
97.6 F 74 12 119/72 96
07/15/24 23:40 07/15/24 23:40 07/15/24 23:40 07/15/24 23:40 07/15/24 23:40
I&O
07/15/24 07/16/24 07/17/24
06:59 06:59 06:59
Intake Total 1200 / 1200 480 / 480
Balance 1200 / 1200 480 / 480
Review of Systems
-
History Source: Patient
Constitutional: Reports No Symptoms
EENT: Reports No Symptoms Reported
Respiratory: Reports No Symptoms
Cardiac: Reports No Symptoms
Abdomen/GI: Reports Abdominal Pain and Diarrhea
Musculoskeletal: Reports No Symptoms
Physical Exam
-
General: Well Developed, Well Nourished, No Apparent Distress, Comfortable and Conversant
HEENT: Normocephalic and Atraumatic
Respiratory: Clear to Auscultation
Cardiac: Regular Rhythm and S1/S2
GI: Soft, Nondistended, Normal Bowel Sounds and Tender
Musculoskeletal: No Clubbing, No Cyanosis and No Edema
Neuro: AO x 3
Psych: Calm
Data Reviewed
-
Labs: Labs Reviewed by me and Discussed with Physician
Old Records: Reviewed
[2024-07-16 09:11] VITALS: BP 142/73
[2024-07-16 09:21] LABS: % Basophils 0.2 % (0-2); % Immature Granulocytes 1.4 % (0-0.5); % Lymphocytes 24.9 % (20.5-51.1); % Monocytes 8.4 % (1.7-9.3); % Neutrophils 65.1 % (42.2-75.2); Absolute Immature Granulocytes 0.2 10^3/uL (0-0.05); Absolute Lymphocytes 3.2 10^3/uL (1.2-3.4); Absolute Monocytes 1.1 10^3/uL (0.1-0.6); Absolute Neutrophils 8.3 10^3/uL (1.4-6.5); Hematocrit 34.7 % (39.0-52.0); Hemoglobin 11.5 g/dL (13.0-18.0); Mean Corp Hgb Conc. 33.1 g/dL (33.0-37.0); Mean Corpuscular Hgb 31.2 pg (27.0-31.0); Mean Platelet Volume 9.1 fL (7.4-10.4); Nucleated Red Blood Cells % 0 % (-); Platelet Count 439 10^3/uL (130-400); Red Blood Cell Count 3.69 10^6/uL (4.70-6.10); Red Cell Dist. Width 12.3 % (11.5-14.5); White Blood Cell Count 12.7 10^3/uL (4.8-10.8)
--- NOTE | 2024-07-16 09:28 | CM ---
Chart reviewed and patient to return to home when stable. No needs.
Plan; Home at discharge no needs.
[2024-07-16] MEDS: PROTONIX 40 MG PO (09:31)
[2024-07-16] MEDS: SOLU-MEDROL PF 20 MG IV ×3 (09:31→23:14)
[2024-07-16 09:57] LABS: Blood Urea Nitrogen 25 mg/dl (9-20); Calcium 9.8 mg/dl (8.4-10.2); Carbon Dioxide 22 mmol/L (22-30); Chloride 106 mmol/L (98-107); Estimated Creatinine Clearance 41 ml/min; Glucose 116 mg/dl (70-99); Potassium 5.1 mmol/L (3.5-5.1); Sodium 138 mmol/L (135-145); eGFR 45.21
[2024-07-16 15:23] VITALS: BP 131/59
[2024-07-16] MEDS: NSS IV (17:09)
[2024-07-16] MEDS: DILAUDID 1 MG IV (20:57)
[2024-07-16] MEDS: FLOMAX 0.4 MG PO (21:04)
[2024-07-16 23:00] VITALS: BP 111/71
[2024-07-17] MEDS: SPIRIVA RESPIMAT 2.5 MCG 2 PUFF INH (08:19)
[2024-07-17] MEDS: SYMBICORT 80/4.5 MCG INHALER 2 PUFF INH (08:19)
--- NOTE | 2024-07-17 08:47 | W.PN.GI.CBS2 ---
Today's Communication / Plan
-
Switch to oral steroid taper and ok to ut home today
Assessment / Plan
-
1. Ulcerative Colitis: With history of proctosigmoiditis, but CT on admission now shows pancolitis, failed Entyvio and every 8weeks Stelara, currently on every 4 weeks, now with worsening symptoms, with negative stool studies in May, also with
repeat negative C. difficile now, and stool cultures also neg, likely related to worsening/flare ulcerative colitis. Symptoms have improved on IV Solu-Medrol okay to switch to oral prednisone 40 mg today and taper by 5 mg every week till done and
he is going to continue on Stelara every 4 weeks and has an appointment in August with Dr. Servin to discuss further treatment options if he has another flare may need to switch to different biologic or Sumit inhibitor. Continue low residue diet for a
couple more days and then can resume regular diet if symptoms are improved. Okay to [place] home today
Subjective
Subjective
Date of Service: July 17, 2024
He is feeling better with less pain less diarrhea no further rectal bleeding and tolerating diet
Objective
Data Reviewed
Laboratory Data:
Laboratory Results
07/16/24 08:42
Laboratory Results
Total Bilirubin 0.5 mg/dl (0.2-1.3) 07/14/24 08:31
AST 15 U/L (17-59) L 07/14/24 08:31
ALT 13 U/L (0-50) 07/14/24 08:31
Alkaline Phosphatase 88 U/L (38-126) 07/14/24 08:31
Lipase 56 U/L (23-300) 07/14/24 08:31
Vital Signs and I&O:
Vital Signs
Temp Pulse Resp BP Pulse Ox
97.7 F 76 14 111/71 96
07/16/24 23:00 07/17/24 08:24 07/17/24 08:24 07/16/24 23:00 07/17/24 08:24
I&O
07/16/24 07/17/24 07/18/24
06:59 06:59 06:59
Intake Total 480 / 480 1080 / 1080
Balance 480 / 480 1080 / 1080
Physical Exam
Physical Exam
Cardiology: Normal Sinus Rhythm
Pulmonary: Clear
GI: Soft, Non Distended, Tender (Mild lower abdomen tenderness) and Normal Bowel Sounds
--- NOTE | 2024-07-17 09:20 | CM ---
Chart reviewed and patient to return to home, no needs when stable.
Plan; Home no needs when stable.
--- NOTE | 2024-07-17 09:22 | W.PN.HOSP.TC ---
Addendum entered and electronically signed by Mikael Herbert MD 07/17/24 13:58:
I saw and evaluated the patient. I reviewed the resident�s note and agree with findings and plan as documented in the resident�s note.
Patient was feeling Mutch better. Pain was better diarrhea is improving. No blood in the stools.
GI evaluation ordered. Steroids being changed to p.o. with a tapering dose.
His creatinine reviewed in [facility] was 1.54 in May is close to his baseline at this point. Patient was advised to repeat BMP and magnesium levels as outpatient in 4 to 5 days.
Will also have to follow-up with Dr. Servin in August.
Original Note:
Today's Communication/Plan
-
Transition to oral steroids
Discharge home
Assessment / Plan
Assessment / Plan
Patient is a 73-year-old male with past medical history of BPH,COPD as a previous smoker, hypertension, osteoarthritis, stage IV kidney disease, iron deficiency anemia, and ulcerative colitis presenting to [facility] after 1-1/2 weeks of
severe diarrhea.
#Colitis with history of proctosigmoiditis
Currently managed on Stelara every 4 weeks
Pending stool studies. C. difficile and norovirus negative, Shigella Campylobacter and Salmonella negative
IV fluids discontinued. Patient transition to oral steroids 40 mg, reduce by 5 mg every week until dose completed.
Consider infliximab as inpatient if no response per GI recommendations
Diet progressed to low residue. Continue.
GI following, input appreciated
#COPD
Continue fluticasone
#Hypertension
Hold losartan
#GERD
Continue omeprazole
DVT: Pneumatic compression sleeves
Diet: Low residue
Full code
Anticipated Discharge: Today
Subjective/Interval History
-
Date of Service: July 17, 2024
Patient is a 73-year-old male with past medical history of BPH,COPD as a previous smoker, hypertension, osteoarthritis, stage IV kidney disease, iron deficiency anemia, and ulcerative colitis presenting to [facility] after 1-1/2 weeks of
severe diarrhea. Patient reports no acute events overnight. He states he is feeling better. He is not having any nausea and stool burden is slowing down, still without blood. patient recommended to switch to oral prednisone 40 mg daily and taper
by 5 mg every week until then by GI. Continue low residue diet.
Objective Data
-
Labs:
Laboratory Results
07/17/24
07:44
Sodium Pending
Potassium Pending
Chloride Pending
Carbon Dioxide Pending
BUN Pending
Creatinine Pending
Glucose Pending
Calcium Pending
Vital Signs:
Vital Signs
Temp Pulse Resp BP Pulse Ox
97.7 F 76 14 111/71 96
07/16/24 23:00 07/17/24 08:24 07/17/24 08:24 07/16/24 23:00 07/17/24 08:24
I&O
07/16/24 07/17/24 07/18/24
06:59 06:59 06:59
Intake Total 480 / 480 1080 / 1080
Balance 480 / 480 1080 / 1080
Review of Systems
-
History Source: Patient
Constitutional: Reports No Symptoms
EENT: Reports No Symptoms Reported
Respiratory: Reports No Symptoms
Cardiac: Reports No Symptoms
Abdomen/GI: Reports Abdominal Pain
Genitourinary: Reports No Symptoms
Musculoskeletal: Reports No Symptoms
Physical Exam
-
General: Well Developed, Well Nourished, No Apparent Distress and Conversant
HEENT: Normocephalic, Atraumatic and Moist Mucous Membranes
Respiratory: Clear to Auscultation
GI: Soft, Tender and Distended
Skin: Warm and Dry
Neuro: AO x 3
Psych: Calm
Data Reviewed
-
Labs: Labs Reviewed by me and Discussed with Physician
Old Records: Reviewed
[2024-07-17] MEDS: PROTONIX 40 MG PO (09:38)
[2024-07-17] MEDS: SOLU-MEDROL PF 20 MG IV (09:38)
[2024-07-17 10:00] VITALS: BP 122/60
[2024-07-17 10:30] LABS: Blood Urea Nitrogen 31 mg/dl (9-20); Calcium 9.8 mg/dl (8.4-10.2); Carbon Dioxide 21 mmol/L (22-30); Chloride 109 mmol/L (98-107); Estimated Creatinine Clearance 41 ml/min; Glucose 123 mg/dl (70-99); Sodium 139 mmol/L (135-145); eGFR 45.21
--- NOTE | 2024-07-17 13:31 | W.DCSUMMARY ---
Addendum entered and electronically signed by Mikael Herbert MD 07/17/24 13:57:
Read, reviewed, and agree. See same day progress note for additional details. Time spent coordinating care, DC planning, review of DC plan of care with resident, transition of care, review of records in EMR, med rec, consults, notes, d/w
consultants, nursing, family, and CM
Original Note:
Documented by User: Anahi Hawk DO, Resident 07/17/24 13:38
Discharge Summary
Discharge Data
Date of Admission: 07/14/24
Date of Discharge: 07/17/24
Total time spent discharging patient (in min): 35
-
Pending Results: No
Hospital Course
Discharging Physician : Mikael Herbert MD
Primary care physician : Pratima Martinez PA-C
Principal Discharge diagnosis : Acute Ulcerative Colitis Flare
Chronic Discharge diagnosis : COPD, HTN, GERD, BPH, OA, CKD, MARKIE
Hospital Course : Patient is a 73-year-old male with past medical history of BPH,COPD as a previous smoker, hypertension, osteoarthritis, stage IV kidney disease, iron deficiency anemia, and ulcerative colitis presenting to [facility] after
1-1/2 weeks of severe diarrhea. He states some days he was in the bathroom 50 times. He states that he has bloody bowel movements, with alternating sharp and cramping abdominal pain diffusely. He has recently lost 20 pounds in the last 6 months
secondary to restrictive eating because he is trying not to use the restroom. Stool studies in May were negative including ova and parasites, culture, Giardia and C. difficile. His dose of Stelara was recently increased in May and he gets
his treatment every 4 weeks. He was seen by GI in the ED who started IV fluids and steroids. Repeat stool studies in hospital were negative. Stolling frequency reduced over the course of admission, now without blood and only 7 times a day (at time
of admission 25+). Patient tolerated progressive diet progression, currently managing low residue diet well. He was transitioned to oral steroids today and is planned to complete an 8 week taper. He must repeat his BMP outpatient next week to assess
electrolyte status since he is still having diarrhea.
#Colitis with history of proctosigmoiditis
Currently managed on Stelara every 4 weeks. Patient transition to oral steroids 40 mg, reduce by 5 mg every week until dose completed. Continue low residue diet for a few more days before starting regular diet. Repeat BMP in 1 week.
#COPD
Continue fluticasone
#Hypertension
Hold losartan in setting of low pressures - can resume when PCP ok's
#GERD
Continue omeprazole
Important imaging findings :
CT AP 07/14
IMPRESSION: CT findings compatible with diffuse colitis. This is most likely exacerbation of ulcerative colitis, given the clinical history.
There is no significant dilation of the colon.
There is no evidence for bowel obstruction and no evidence of free intraperitoneal air.
Status post cholecystectomy with no evidence for biliary ductal dilation.
Bony degenerative changes as described.
Discharge Plan
-
Patient Disposition: Home (Routine Discharge)
Discharge Diagnosis/Procedures: Acute flare of ulcerative colitis
Condition: Good
Diet: As tolerated and Low Residue
Additional Diets: Low residue recommended by GI for a few more days before resuming regular diet
Activity: As tolerated
Driving Restrictions: As prior to admission
Bathing Restrictions: None
Blood Work: bmp 4-5 days, mag 4-5 days
Referrals:
Pratima Martinez PA-C [Family Provider] - in one to two weeks
Marianne Servin DO [Active] -
Additional Discharge Medication Instructions: please complete repeat BMP in one week
Prescriptions:
New
prednisone 10 mg Tablet
10 mg PO DIRECTED Qty: 126 0RF
Rx Instructions:
For 8 weeks go down by 5 mg. start 40 mg(4 tab)x7days. Then 35mg(3.5 tab)x7days etc.
Continued
omeprazole 20 MG capsule,delayed release(DR/EC)
20 mg PO DAILY
tamsulosin [Flomax] 0.4 MG capsule
0.4 mg PO HS
cholecalciferol (vitamin D3) 2,000 UNITS tablet
2,000 units PO DAILY
therapeutic multivitamin Tablet
1 tab PO DAILY
ascorbic acid (vitamin C) [Vitamin C] 500 mg Tablet
500 mg PO DAILY
albuterol sulfate 90 mcg/actuation Hfa Aerosol Inhaler
2 puff INHALATION R Q6HPRN PRN (Reason: sob)
ferrous sulfate 134 mg (27 mg iron) Tablet
134 mg PO DAILY
Stelara 45 mg/0.5 mL Solution
45 mg SC Q4W
Trelegy Ellipta 100-62.5-25 mcg Blister With Device
1 inh INHALATION R DAILY
Held
losartan-hydrochlorothiazide 100-12.5 mg Tablet
1 tab PO DAILY
Hold Instructions: when PCP says ok to resume.
Discharge Orders:
Discharge Patient (As Directed); Ordered 07/17/24
Ordered By: Anahi Hawk
Discharge Date and Time
Print Language: PORTUGUESE

Documented by User: Mikael Herbert MD 07/17/24 13:56
Discharge Summary
Discharge Data
Date of Admission: 07/14/24
Date of Discharge: 07/17/24
Discharge Plan
-
Patient Disposition: Home (Routine Discharge)
Discharge Diagnosis/Procedures: Acute flare of ulcerative colitis
Condition: Good
Diet: As tolerated and Low Residue
Additional Diets: Low residue recommended by GI for a few more days before resuming regular diet
Activity: As tolerated
Driving Restrictions: As prior to admission
Bathing Restrictions: None
Blood Work: bmp 4-5 days, mag 4-5 days
Referrals:
Pratima Martinez PA-C [Family Provider] - in one to two weeks
Marianne Servin DO [Active] -
Additional Discharge Medication Instructions: please complete repeat BMP in one week
Prescriptions:
New
prednisone 10 mg Tablet
10 mg PO DIRECTED Qty: 126 0RF
Rx Instructions:
For 8 weeks go down by 5 mg. start 40 mg(4 tab)x7days. Then 35mg(3.5 tab)x7days etc.
Continued
omeprazole 20 MG capsule,delayed release(DR/EC)
20 mg PO DAILY
tamsulosin [Flomax] 0.4 MG capsule
0.4 mg PO HS
cholecalciferol (vitamin D3) 2,000 UNITS tablet
2,000 units PO DAILY
therapeutic multivitamin Tablet
1 tab PO DAILY
ascorbic acid (vitamin C) [Vitamin C] 500 mg Tablet
500 mg PO DAILY
albuterol sulfate 90 mcg/actuation Hfa Aerosol Inhaler
2 puff INHALATION R Q6HPRN PRN (Reason: sob)
ferrous sulfate 134 mg (27 mg iron) Tablet
134 mg PO DAILY
Stelara 45 mg/0.5 mL Solution
45 mg SC Q4W
Trelegy Ellipta 100-62.5-25 mcg Blister With Device
1 inh INHALATION R DAILY
Held
losartan-hydrochlorothiazide 100-12.5 mg Tablet
1 tab PO DAILY
Hold Instructions: when PCP says ok to resume.
Discharge Orders:
Discharge Patient (As Directed); Ordered 07/17/24
Ordered By: Anahi Hawk
Discharge Date and Time
Print Language: PORTUGUESE
[2024-07-17 19:15] LABS: Calprotectin, Fecal 475 ug/g (<=49)
== END 2024-07-17 14:06 | disposition home or self-care (01) | DRG 386 ==
LOC: 4 WEST ACU 15:22
PROVIDERS: Internal Medicine; Physician Assistant; ADMITTING PHYSICIAN Hospitalist; EMERGENCY PHYSICIAN Emergency Medicine; FAMILY PHYSICIAN Physician Assistant Medical; OTHER PHYSICIAN Internal Medicine Gastroenterology
DX: K51.911 Ulcerative colitis, unspecified with rectal bleeding (principal); N17.9 Acute kidney failure, unspecified; N18.4 Chronic kidney disease, stage 4 (severe); Z87.891 Personal history of nicotine dependence; I12.9 Hypertensive chronic kidney disease with stage 1 through stage 4 chronic kidney disease, or unspecified chronic kidney disease; J44.9 Chronic obstructive pulmonary disease, unspecified; K21.9 Gastro-esophageal reflux disease without esophagitis
CPT/HCPCS: 74176; 80048; 80053; 81003; 81015; 82728; 83540; 83690; 83993; 84300; 85025; 85652; 86140; 87045; 87046; 87324; 87427; 87449; 87798; 94640; 96374; 96375; 99285

== ENCOUNTER → 2024-08-31 16:35 | Outpatient (REF) | payer OTHER, SELFPAY | LOC: RAD 16:35 | PROVIDERS: ATTENDING PHYSICIAN Internal Medicine | DX: M79.89 Other specified soft tissue disorders (principal); J43.2 Centrilobular emphysema; J20.9 Acute bronchitis, unspecified | CPT/HCPCS: 71046; 93971 ==

== ENCOUNTER → 2024-09-14 10:01 | Outpatient (REF) | payer OTHER, SELFPAY | LOC: HWRAD 10:01 | PROVIDERS: ATTENDING PHYSICIAN Physician Assistant Medical | DX: R05.1 Acute cough (principal) | CPT/HCPCS: 71046 ==

== ENCOUNTER → 2024-12-22 08:45 | Outpatient (REF) | payer OTHER, SELFPAY | LOC: RAD 08:45 | PROVIDERS: ATTENDING PHYSICIAN Internal Medicine; FAMILY PHYSICIAN Physician Assistant Medical | DX: R13.10 Dysphagia, unspecified (principal) | CPT/HCPCS: 74221 ==

== ENCOUNTER → 2025-01-15 09:43 | Outpatient (REF) | payer OTHER, SELFPAY | LOC: RAD 09:43 | PROVIDERS: ATTENDING PHYSICIAN Internal Medicine Cardiovascular Disease; FAMILY PHYSICIAN Physician Assistant Medical | DX: I82.890 Acute embolism and thrombosis of other specified veins (principal) | CPT/HCPCS: 93971 ==

== ENCOUNTER 2025-03-10 06:29 | Day surgery (SDC) | payer OTHER, SELFPAY | END 2025-03-10 09:30 | disposition home or self-care (01) | LOC: GI 06:29 | PROVIDERS: ATTENDING PHYSICIAN Internal Medicine | DX: R93.3 Abnormal findings on diagnostic imaging of other parts of digestive tract (principal); R13.10 Dysphagia, unspecified; K44.9 Diaphragmatic hernia without obstruction or gangrene; K22.9 Disease of esophagus, unspecified; K22.2 Esophageal obstruction; K20.90 Esophagitis, unspecified without bleeding | CPT/HCPCS: 43249; 43239; 88305 ==

== ENCOUNTER 2025-04-21 19:47 | Emergency (ER) | payer OTHER, SELFPAY ==
[2025-04-21 19:49] VITALS: BP 151/103
[2025-04-21 20:06] LABS: Hematocrit 34.8 % (39.0-52.0); Hemoglobin 11.3 g/dL (13.0-18.0); Mean Corp Hgb Conc. 32.5 g/dL (33.0-37.0); Mean Corpuscular Volume 98.0 fL (80.0-94.0); Nucleated Red Blood Cells % 0 % (-); Platelet Count 326 10^3/uL (130-400); Red Cell Dist. Width 14.6 % (11.5-14.5)
[2025-04-21 20:20] LABS: ALT (SGPT) 21 U/L (0-50); AST (SGOT) 19 U/L (17-59); Albumin 3.3 g/dl (3.5-5.0); Alkaline Phosphatase 75 U/L (38-126); Blood Urea Nitrogen 32 mg/dl (9-20); Calcium 9.3 mg/dl (8.4-10.2); Carbon Dioxide 26 mmol/L (22-30); Chloride 108 mmol/L (98-107); Glucose 152 mg/dl (70-99); Potassium 4.9 mmol/L (3.5-5.1); Sodium 137 mmol/L (135-145); Total Protein 5.2 g/dl (6.3-8.2); eGFR 48.55
--- NOTE | 2025-04-21 20:50 | ED.GENMED ---
History of Present Illness
General
Chief Complaint: Skin Problem
Source: patient
Exam Limitations: none
Time Seen by Provider: 04/21/25 20:36
History of Present Illness
History of Present Illness:
See MDM
Past History
Past History
ED Past Medical History: HTN and Other (Osteoarthritis)
ED Past Surgical History: Appendectomy, Orthopedic and Other (hernia)
Social History
Tobacco: Non-smoker
Alcohol: Occasional (Rare)
Personal:
Living: with family
Employment: Employed
Family History
Family History: Other (Noncontributory)
Phy Exam
Physical Exam
Physical Exam:
See MDM
Course
Orders/Labs/Results
Orders:
Orders
04/21/25 19:53
US Arms, Right [US Periph Venous UPPER Ext RT] Urgent
Comment:
Reason For Exam: redness/swelling
04/21/25 19:58
Complete Blood Count/With Diff Urgent
Comprehensive Metabolic Panel Urgent
04/21/25 20:42
Doxycycline [Vibramycin] 100 mg PO NOW STA
04/21/25 20:46
Oxycodone/Acetaminophen [Percocet 5/325] 1 tablet PO NOW STA
Abnormal Lab Results
04/21/25
19:58
WBC 14.6 H 10^3/uL
(4.8-10.8)
RBC 3.55 L 10^6/uL
(4.70-6.10)
Hgb 11.3 L g/dL
(13.0-18.0)
Hct 34.8 L %
(39.0-52.0)
MCV 98.0 H fL
(80.0-94.0)
MCH 31.8 H pg
(27.0-31.0)
MCHC 32.5 L g/dL
(33.0-37.0)
RDW 14.6 H %
(11.5-14.5)
Abs Immat Gran (auto) 0.3 H 10^3/uL
(0-0.05)
Absolute Neuts (auto) 9.7 H 10^3/uL
(1.4-6.5)
Absolute Lymphs (auto) 3.8 H 10^3/uL
(1.2-3.4)
Absolute Monos (auto) 0.8 H 10^3/uL
(0.1-0.6)
Immature Gran % 1.9 H %
(0-0.5)
Chloride 108 H mmol/L
(98-107)
BUN 32 H mg/dl
(9-20)
Creatinine 1.5 H mg/dL
(0.7-1.3)
Glucose 152 H mg/dl
(70-99)
Total Protein 5.2 L g/dl
(6.3-8.2)
Albumin 3.3 L g/dl
(3.5-5.0)
04/21/25 19:58
04/21/25 19:58
Vital Signs
Initial and Last Documented VS:
Initial Vital Signs
Temp Pulse Resp BP Pulse Ox
98.0 F 98 20 151/103 98
04/21/25 19:49 04/21/25 19:49 04/21/25 19:49 04/21/25 19:49 04/21/25 19:49
Last Documented Vital Signs
Temp Pulse Resp BP Pulse Ox
98.0 F 98 20 151/103 98
04/21/25 19:49 04/21/25 19:49 04/21/25 19:49 04/21/25 19:49 04/21/25 20:52
MDM/Problems Addressed
Differential Diagnosis Includes:
Note:
CHIEF COMPLAINT(S)
Swollen and red arm.
HISTORY OF PRESENT ILLNESS
The patient is a 74-year-old male who presented with a swollen and red arm. The onset of symptoms last night and denies recent injuries or significant trauma were reported. The patient mentioned easy bruising and bleeding due to ongoing
anticoagulant therapy with apixaban (Eliquis). There are some small scabs, but no recent scratches in the area. On examination, a well-demarcated line between normal and erythematous skin was noted, consistent with cellulitis. The patient
experienced tingling, likely due to swelling compressing small nerves, and no fever was reported. Blood work indicated a slightly elevated white blood cell count, suggestive of infection or inflammation, although it was noted as not definitive
without a fever. The plan includes an ultrasound to exclude deep vein thrombosis and initiation of antibiotic therapy.
Given his chronic kidney disease, will avoid Bactrim. Will start doxycycline
ALLERGIES
The patient reported an allergy to penicillin.
MEDICATIONS
The patient is currently on apixaban (Eliquis).
REVIEW OF SYSTEMS
- Integumentary: Redness and swelling noted on the arm with a well-demarcated line normal and affected areas.
- Neurological: Tingling sensation in the affected arm.
- Hematologic: History of easy bruising and bleeding due to anticoagulation therapy.
PHYSICAL EXAM
General: Alert, no acute distress.
Skin: Warm, dry. Cellulitic changes noted to right forearm
Head: Normocephalic, atraumatic
Neck: Appears supple, trachea midline.
Eyes, Ears, Nose, Mouth, and Throat: Oral mucosa moist.
Cardiovascular: No signs of cyanosis
Respiratory: Respirations are non-labored.
Abdomen: Non-distended
Musculoskeletal: Mild swelling and cellulitis noted to right arm. However, distal extremity neurovascularly intact
Neurological: No focal neurological deficit observed.
Psychiatric: Cooperative, appropriate mood and affect.
PROBLEM LIST
Acute:
- Cellulitis of the arm
- Elevated white blood cell count indicative of infection/inflammation
PLAN
1. Initiate antibiotic therapy with Doxycycline to treat the suspected cellulitis.
2. Administer a dose of oxycodone/acetaminophen (Percocet) for pain management.
3. Conduct an ultrasound of the arm to rule out deep vein thrombosis.
4. Monitor symptoms and response to treatment, ensuring a decline in swelling and improvement in the tingling sensation.
DIFFERENTIAL DIAGNOSIS
The Differential Diagnosis includes, in no particular order and is not limited to:
1. Cellulitis
2. Deep vein thrombosis
3. Superficial thrombophlebitis
4. Allergic contact dermatitis
5. Localized abscess
6. Insect bite reaction
7. Lymphedema
8. Hematoma
9. Nerve compression due to swelling
10. Complex regional pain syndrome
SUMMARY OF ENCOUNTER
The patient, a 74-year-old male, was seen in the emergency department for a swollen and red arm, consistent with cellulitis. An ultrasound of the arm was conducted to exclude the possibility of deep vein thrombosis, and results showed no blood clot,
which is favorable. The patients symptoms, including tingling likely due to swelling compressing small nerves, and elevated white blood cell count pointing to a possible infection or inflammation, were managed conservatively.
PLAN
Initiate antibiotic therapy with doxycycline for one week with reevaluation by primary care if symptoms persist. Prescribe a short course of pain medicine which can be filled if needed. Monitor for worsening symptoms such as increased swelling or
fever.
INDEPENDENT REVIEW OF LABS AND INTERPRETATION OF TESTS
My independent review of CBC indicated an elevated white blood cell count suggesting infection or inflammation. My independent interpretation of the ultrasound indicates no deep vein thrombosis.
PATIENT EDUCATION AND COUNSELING
The patient was advised regarding the signs of worsening infection, such as increased swelling or fever. The importance of completing the antibiotic course was emphasized, and it was explained that follow-up with primary care is essential if
symptoms do not fully resolve or worsen.
FOLLOW-UP INSTRUCTIONS
The patient is advised to follow-up with their primary care provider for further evaluation if the symptoms do not improve after the antibiotic course or worsen.
MEDICATION RECONCILIATION
- Prescribed doxycycline for antibiotic therapy.
- Prescribed a short course of pain medication for pain management, if required.
MEDICAL DECISION MAKING
- Number and Complexity of Problems Addressed: Chronic conditions affecting care - cellulitis of the arm, elevated white blood cell count. Differential Diagnosis includes cellulitis, deep vein thrombosis, superficial thrombophlebitis, allergic
contact dermatitis, localized abscess, insect bite reaction, lymphedema, hematoma, nerve compression due to swelling, complex regional pain syndrome.
- Data:
- Category 1: Tests and documents ordered and reviewed include CBC and ultrasound of the arm.
- Risk: Prescription drug management is considered with the initiation of antibiotic therapy. Consideration of Admission/Observation: Escalation of care including admission/observation was considered given the complexity and risk of the patients
presenting complaint, exam findings, and their underlying comorbidities. However, ultimately it was determined that the patient is safe for outpatient management with close follow-up. Reasoning: Work-up reassuring, does not reveal any acute
life/organ threatening processes, patients symptoms well controlled upon reevaluation, reexamination is reassuring, vitals are stable, patient agreeable with discharge, reliable for follow-up.
DIAGNOSIS
- Cellulitis (L03.90)
*Pulse Oximetry
SaO2: 98
Oxygen Mode of Delivery: Room air
Patient hypoxic: no
*Critical Care Note
Total Time (30-74mins, 75-104mins- exclusive of procedures): Not Applicable
ED Attending Note
-
Portions of this chart may have been created with voice recognition software.� Occasional wrong word or��sound alike� substitutions may have occurred due to the inherent limitations of voice recognition software.
Discharge Plan
Departure
Patient Disposition: Home (Routine Discharge)
Date of Disposition: 04/21/25
Time of Disposition: 21:36
Patient with high blood pressure during this ER visit?: Yes
Discharge Problem:
Cellulitis
Instructions: Cellulitis (Skin Infection), Adult (DC)
Prescriptions:
New
doxycycline hyclate 100 mg capsule
100 mg PO BID Qty: 14 0RF
oxycodone 5 mg tablet
5 mg PO Q8H PRN (Reason: Pain) Qty: 7 0RF
No Action
omeprazole 20 MG capsule,delayed release(DR/EC)
20 mg PO DAILY
tamsulosin [Flomax] 0.4 MG capsule
0.4 mg PO HS
cholecalciferol (vitamin D3) 2,000 UNITS tablet
2,000 units PO DAILY
therapeutic multivitamin Tablet
1 tab PO DAILY
ascorbic acid (vitamin C) [Vitamin C] 500 mg Tablet
500 mg PO DAILY
albuterol sulfate 90 mcg/actuation Hfa Aerosol Inhaler
2 puff INHALATION R Q6HPRN PRN (Reason: sob)
ferrous sulfate 134 mg (27 mg iron) Tablet
134 mg PO DAILY
losartan-hydrochlorothiazide 100-12.5 mg Tablet
1 tab PO DAILY
Stelara 45 mg/0.5 mL Solution
45 mg SC Q4W
Trelegy Ellipta 100-62.5-25 mcg Blister With Device
1 inh INHALATION R DAILY
prednisone 10 mg Tablet
10 mg PO DIRECTED Qty: 126 0RF
Rx Instructions:
For 8 weeks go down by 5 mg. start 40 mg(4 tab)x7days. Then 35mg(3.5 tab)x7days etc.
Referrals:
Pratima Martinez PA-C [Family Provider, Internal Medicine]
Activity Restrictions/Additional Instructions:
Watch for worsening signs of infection: fever over 100.5', increasing pain, red streaks around wound, swelling, or increasing drainage of pus. If any of these happen, return to ED promptly. Make sure that you take all your antibiotics as directed
and finish your prescription even if you feel better before the bottle is empty.
Please return for any worsening symptoms.
You may return at any time if you have further concerns.
Please follow up with your doctor at the first available appointment, preferably this week.
Thank you for choosing [facility].
Interventions
Interventions:
*General Assessment Last Done: 04/21/25 19:52
Discharge Date and Time
Print Language: FINNISH
[2025-04-21] MEDS: VIBRAMYCIN 100 MG PO (21:24)
[2025-04-21] MEDS: PERCOCET 5/325 1 TABLET PO (21:24)
== END 2025-04-21 22:06 | disposition home or self-care (01) ==
LOC: EMR 19:47
PROVIDERS: EMERGENCY PHYSICIAN Student in an Organized Health Care Education/Training Program; FAMILY PHYSICIAN Physician Assistant Medical
DX: L03.113 Cellulitis of right upper limb (principal); I12.9 Hypertensive chronic kidney disease with stage 1 through stage 4 chronic kidney disease, or unspecified chronic kidney disease; N18.9 Chronic kidney disease, unspecified; M19.90 Unspecified osteoarthritis, unspecified site; Z79.01 Long term (current) use of anticoagulants; Z88.0 Allergy status to penicillin
CPT/HCPCS: 99284; 80053; 85025; 93971

== ENCOUNTER → 2025-05-03 08:30 | Outpatient (REF) | payer OTHER, SELFPAY | LOC: HWRAD 08:30 | PROVIDERS: ATTENDING PHYSICIAN Physician Assistant Medical | DX: I82.402 Acute embolism and thrombosis of unspecified deep veins of left lower extremity (principal) | CPT/HCPCS: 93971 ==

== ENCOUNTER → 2025-05-05 10:16 | Outpatient (REF) | payer OTHER, SELFPAY | LOC: HWRAD 10:16 | PROVIDERS: ATTENDING PHYSICIAN Physician Assistant Medical | DX: M54.59 Other low back pain (principal) | CPT/HCPCS: 72110 ==

== ENCOUNTER 2025-06-02 06:22 | Day surgery (SDC) | payer OTHER, SELFPAY | END 2025-06-02 10:06 | disposition home or self-care (01) | LOC: GI 06:22 | PROVIDERS: ATTENDING PHYSICIAN Internal Medicine | DX: K51.00 Ulcerative (chronic) pancolitis without complications (principal); D12.0 Benign neoplasm of cecum; D12.3 Benign neoplasm of transverse colon; D12.4 Benign neoplasm of descending colon; D12.5 Benign neoplasm of sigmoid colon; K64.4 Residual hemorrhoidal skin tags | CPT/HCPCS: 45385; 45380; 88305 ==

== ENCOUNTER → 2025-06-02 14:15 | Outpatient (REF) | payer OTHER, SELFPAY | LOC: HWRAD 14:15 | PROVIDERS: ATTENDING PHYSICIAN Physician Assistant Medical | DX: R51.9 Headache, unspecified (principal) | CPT/HCPCS: 70450 ==

== ENCOUNTER → 2025-06-30 10:40 | Outpatient (REF) | payer OTHER, SELFPAY | LOC: RAD 10:40 | PROVIDERS: ATTENDING PHYSICIAN Physician Assistant Medical | DX: S32.000A Wedge compression fracture of unspecified lumbar vertebra, initial encounter for closed fracture (principal) | CPT/HCPCS: 77080 ==

== ENCOUNTER → 2025-07-15 14:49 | Outpatient (REF) | payer OTHER, SELFPAY | LOC: REG 14:49 | PROVIDERS: ATTENDING PHYSICIAN Internal Medicine | DX: R19.7 Diarrhea, unspecified (principal); K51.90 Ulcerative colitis, unspecified, without complications | CPT/HCPCS: 87324; 87449 ==

== ENCOUNTER → 2025-07-17 07:01 | Outpatient (REF) | payer OTHER, SELFPAY | LOC: PAVMRI 07:01 | PROVIDERS: ATTENDING PHYSICIAN Physician Assistant; FAMILY PHYSICIAN Physician Assistant Medical | DX: M54.16 Radiculopathy, lumbar region (principal); S32.010A Wedge compression fracture of first lumbar vertebra, initial encounter for closed fracture; S32.020A Wedge compression fracture of second lumbar vertebra, initial encounter for closed fracture; Z79.52 Long term (current) use of systemic steroids | CPT/HCPCS: 72148 ==